=== PATIENT | female | born 2005 | race African-American/Black ===

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

== ENCOUNTER 2024-06-18 15:47 | Emergency (ER) | payer OTHER ==
[~2024-06-18] VITALS: Ht 160 cm; Wt 55.0 kg
[~2024-06-18 15:47] MED LIST changes: +NAPR-1129 MT
[2024-06-18 15:50] VITALS: TEMP 98.6; O2SAT 100
[2024-06-18] MEDS ORDERED: ACET-2708 PO (17:07)
[2024-06-18] MEDS ORDERED: BO1 TP (17:07)
[2024-06-18 17:17] VITALS: BP 100/60; PULSE 70; RESP 15
[2024-06-18] MEDS: BACITRACIN ZINC OINT UDPKT TOP ONE (17:17)
== END 2024-06-18 17:21 ==
LOC: ER 15:47
DX: S61.011A Laceration without foreign body of right thumb without damage to nail, initial encounter (principal); F31.9 Bipolar disorder, unspecified; Z79.899 Other long term (current) drug therapy; X58.XXXA Exposure to other specified factors, initial encounter; Y93.89 Activity, other specified; Y92.89 Other specified places as the place of occurrence of the external cause; Y99.8 Other external cause status
CPT/HCPCS: 99283; Z7610

== ENCOUNTER 2025-05-09 08:53 | Emergency (ER) | payer OTHER ==
[~2025-05-09] VITALS: Ht 162.6 cm; Wt 58.0 kg
[~2025-05-09 08:53] MED LIST changes: +ACET-2708 PO; +BO1 TP
[2025-05-09 08:55] VITALS: PULSE 91; O2SAT 98
[2025-05-09 08:58] VITALS: BP 120/77; RESP 16; TEMP 36.7; O2SAT 97
[2025-05-09 09:24] LABS: BASOPHILS % 1.1 % (0.0-2.0); DIFFERENTIAL COMMENT 0; EOSINOPHILS % 4.3 % (0.0-5.0); HEMATOCRIT. 39.5 % (36.0-48.0); HEMOGLOBIN. 12.6 g/dL (12.0-16.0); LYMPHOCYTES % 49.1 % (20.0-50.0); MEAN CORPUSCULAR HEMOGLOBIN 23.8 pg (28.0-32.0); MEAN CORPUSCULAR HGB CONC 31.8 g/dL (31.0-37.0); MEAN CORPUSCULAR VOLUME 74.8 fL (81.0-99.0); MEAN PLATELET VOLUME 9.1 fl (7.4-10.4); MONOCYTES % 6.7 % (2.0-8.0); NEUTROPHILS % 38.8 % (40.0-76.0); PLATELET 250 x1000/uL (130-400); RED BLOOD CELL COUNT 5.28 mill/uL (4.2-5.4); RED CELL DISTRIBUTION WIDTH 13.6 % (11.6-14.6); WHITE BLOOD COUNT 6.1 x1000/uL (4.5-11.0)
[2025-05-09 09:30] LABS: CHLORIDE 110 mEq/L (98-107); POTASSIUM 3.4 mEq/L (3.5-5.1); SODIUM 141 mEq/L (136-145)
[2025-05-09 09:31] LABS: CALCIUM 9.2 mg/dL (8.7-10.4); CARBON DIOXIDE 24 mEq/L (21-32)
[2025-05-09 09:35] LABS: HCG SCREEN NEGATIVE
[2025-05-09 09:36] LABS: CLARITY URINE CLOUDY (CLEAR); COLOR URINE YELLOW (YELLOW); GLUCOSE URINE NEGATIVE (NEGATIVE); KETONES URINE NEGATIVE (NEGATIVE); LEUKOCYTE ESTERASE URINE 2+ (NEGATIVE); NITRITE URINE NEGATIVE (NEGATIVE); OCCULT BLOOD URINE 2+ (NEGATIVE); PROTEIN URINE TRACE (NEGATIVE); SPECIFIC GRAVITY URINE 1.026 (1.005-1.030); UROBILINOGEN URINE 0.2 E.U./dL (0.2-1.0)
[2025-05-09 09:36] LABS: CREATININE 0.6 mg/dL (0.6-1.0); GLUCOSE 105 mg/dL (70-105); UREA NITROGEN BLOOD 11 mg/dL (9-23)
[2025-05-09 09:38] LABS: ALANINE AMINOTRANSFERASE 8 IU/L (10-49); ALBUMIN 4.4 g/dL (3.2-4.8); ASPARTATE AMINOTRANSFERASE 14 IU/L (<34); BILIRUBIN TOTAL 0.6 mg/dL (0.1-1.0); PROTEIN TOTAL 6.7 g/dL (6.0-8.3)
[2025-05-09 09:49] LABS: MUCUS URINE 3+ /lpf (< = 2+); SQUAMOUS EPITHELIAL CELL URINE 3+ /lpf (RARE/1+)
[2025-05-09 09:51] LABS: WBC URINE TNTC /hpf (0-2)
[2025-05-09 09:53] LABS: BACTERIA URINE 3+
[2025-05-09] MEDS ORDERED: CEFP100T8 MT (10:16)
== END 2025-05-09 10:35 | disposition home or self-care (01) ==
LOC: ER 08:53
DX: N39.0 Urinary tract infection, site not specified (principal); F31.9 Bipolar disorder, unspecified; Z91.018 Allergy to other foods; Z91.02 Food additives allergy status; Z79.899 Other long term (current) drug therapy
CPT/HCPCS: 36415; 80053; 81003; 81025; 84703; 85025; 87077; 87186; 99283